=== PATIENT | female | born 1965 | race Caucasian/White ===

== ENCOUNTER → 2019-12-31 13:03 | Outpatient (CLI) | payer OTHER, SELFPAY ==
--- NOTE | ~2019-12-31 | MR_ITS ---
EXAMINATION: MR abdomen wo/w con INDICATION: Liver disease, unspecified TECHNIQUE: Coronal SSFSE ARC, WATER:coronal LAVA-FLEX, Coronal 2D FIESTA FatSat, Axial SSFSE BH ARC, Axial 3D DualEcho BH, Axial SSFSE-IR, Axial DWI b=500, Axial 2D FIESTA FatSat, pre and dynamic postco ntrast Axial LAVA ARC, postcontrast Coronal In and Opposed phase LAVA FLEX COMPARISON: None available CONTRAST: Multihance, 19 cc FINDINGS: There is a 3.8 x 3.4 cm T1 hypointense, T2 hyperintense mass of the right hepatic lobe whic h demonstrates peripheral enhancement with slow progressive enhancement on dynamic postcontrast seque nces. There is a 2.5 x 1.8 cm mildly T1 hypointense and mildly T2 hyperintense mass in liver segment II which demonstrates arterial enhancement with persistent enhancement on dynamic postcontrast sequen ramez. The spleen, pancreas, gallbladder, and adrenal glands are normal. The kidneys are unremarkable. There are no pathologically enlarged abdominal lymph nodes. No dilated loops of bowel are present. IMPRESSION: 1. Right hepatic lobe mass with MR features of a hemangioma. 2. Left hepatic lobe mass with MR features of focal nodular hyperplasia. Reviewed, dictated and finalized at location B.
[2019-12-31 13:30] LABS: Estimated Glomerular Filt Rate 46
== END ==
PROVIDERS: Visit Provider Nurse Practitioner Family
DX: K76.9 Liver disease, unspecified (principal)
CPT/HCPCS: 36415; 74183; A9577

== ENCOUNTER → 2020-01-15 16:24 | Outpatient (CLI) | payer OTHER, SELFPAY ==
--- NOTE | ~2020-01-15 | MM_ITS ---
EXAMINATION: MM screening [facility] BI w liliana HISTORY: Screening mammogram TECHNIQUE: Craniocaudal and mediolateral oblique 3-D tomosynthesis images were obtained and synthetic 2-D images were generated. CAD analysis was submitted and interpreted. COMPARISON: 11/28/2018, 11/15/2018, 09/03/2017 BREAST PARENCHYMAL COMPOSITION: There are scattered areas of fibroglandular density. FINDINGS: There is no evidence of suspicious mass, calcification, or architectural distortion to sugg est malignancy in either breast. There has been no suspicious interval change. IMPRESSION: 1. No mammographic evidence of malignancy. 2. Recommend routine screening mammography in one year. BI-RADS Category 1: Negative Reviewed, dictated and finalized at location B.
== END ==
PROVIDERS: Visit Provider Obstetrics & Gynecology
DX: Z12.31 Encounter for screening mammogram for malignant neoplasm of breast (principal)
CPT/HCPCS: 77063; 77067

== ENCOUNTER 2020-02-13 06:31 | Outpatient (CLI) | payer OTHER, SELFPAY ==
[2020-02-13 16:20] LABS: SARS-CoV-2 RNA PCR Negative
== END 2020-02-13 06:32 | disposition home or self-care (01) ==
LOC: ANHCOVIDDT 06:32
PROVIDERS: Visit Provider Obstetrics & Gynecology
DX: Z01.818 Encounter for other preprocedural examination (principal); Z11.59 Encounter for screening for other viral diseases
CPT/HCPCS: 87635; C9803; U0003

== ENCOUNTER 2020-02-13 09:33 | Outpatient (CLI) | payer OTHER, SELFPAY | END 2020-02-13 09:34 | disposition home or self-care (01) | PROVIDERS: PCP Family Medicine; Visit Provider Obstetrics & Gynecology | DX: Z01.818 Encounter for other preprocedural examination (principal) | CPT/HCPCS: 36415; 86850; 86900; 86901 ==

== ENCOUNTER 2020-02-16 00:26 | Day surgery (SDC) | payer OTHER, SELFPAY ==
--- NOTE | 2020-02-11 12:57 | PM.IMHP ---
H&P: HPI History of Present Illness Chief complaint: pain, righ ovarian cyst Narrative: Madhavi Hunt is a 54 year old female who was admitted for laparoscopy and possible right salpingo-oophorectomy. She has pain on the right side for more than a month. She have seen her general practitioner presented to the ER and she had a normal CT and MRI. She underwent colonoscopy and some polyps were seen but no explanation for her pain seen. Her pain is unrelenting. Risks and benefits were reviewed in full Review of Systems Review of Systems: All systems reviewed & are unremarkable except as noted in HPI and below PMFSH Family History Family History Father Diabetes mellitus, Onset Age: 63 Hypertension, Onset Age: 63 Family history of coronary artery disease, Onset Age: 63 Mother Diabetes mellitus Hypertension Family history of primary malignant neoplasm of liver, Onset Age: 74 Social History Social History Smoking status: Never smoker Alcohol intake: never Meds Home Medications and Allergies Home Medications Medication Instructions Recorded Confirmed Type baclofen 20 mg tablet 20 mg PO TID tablet 09/19/19 History cholecalciferol (vitamin D3) 50 2,000 unit PO DAILY 09/19/19 History mcg (2,000 unit) capsule gabapentin 300 mg capsule See Rx Instructions .ROUTE .COMPLEX 09/19/19 History levothyroxine 50 mcg tablet 50 mcg PO DAILY 09/19/19 History pantoprazole 40 mg tablet,delayed 40 mg PO DAILY tablet 09/19/19 History release topiramate 200 mg tablet 200 mg PO DAILY 09/19/19 History Allergies Allergy/AdvReac Type Severity Reaction Status Date / Time iodine Allergy Unknown Verified 02/24/19 13:59 morphine Allergy Unknown Verified 02/24/19 13:59 Penicillins Allergy Unknown Verified 07/27/16 08:02 TOMATP SEEDS- CAUSES TONGUE Allergy Unknown Uncoded 03/31/03 11:34 TO SWELL Exam Const: General: no acute distress Eyes: General: appearance normal, both eyes and all related structures Neck: Neck: supple and no JVD Thyroid: thyroid normal Resp: Effort & Inspection: normal respiratory effort Auscultation: clear to auscultation bilaterally Cardio: Rate: regular rate Rhythm: regular rhythm GI: Inspection: non-distended GI Palp: Yes Soft to palpation, No Tenderness to palpation present (GI) and No Guarding due to palpation present (GI) Auscultation: normal bowel sounds : External Female Exam: normal external appearance Speculum Exam - Vagina: normal appearance of the vagina Bimanual Exam- Adnexa, other: tender on the right Skin: General skin exam: no rashes or lesions noted Extrem: General: normal to inspection and no edema Psych: Mental Status: mental status grossly normal Affect: normal affect Assessment and Plan Additional Plan impression: Severe right-sided pain probable adnexal 1 nature Plan: Laparoscopy / possible right salpingo-oophorectomy
[2020-02-11 13:56] VITALS: BMI 34.8
[2020-02-16] VITALS (8 sets, daily range): BP systolic 99–133; BP diastolic 48–72; PULSE 46–70; RESP 10–20; TEMP 36.4; O2SAT 98–100
--- NOTE | 2020-02-16 06:36 | WPDHPUPDATE1 ---
History and Physical Update Update Date/Time: 02/16/20 06:36 History and Physical has been reviewed, including an updated exam of the patient. There are NO changes in the patient's condition. Risks, benefits, and alternatives have been discussed and questions answered. Patient agrees to proceed with procedure.
[2020-02-16] MEDS: LACTATED RINGERS 1,000 ML 30 ML IV CONT (08:25)
--- NOTE | 2020-02-16 08:33 | SUR.PREOP ---
pt states lmp 06/13
--- NOTE | 2020-02-16 08:41 | WPDANESEPPF ---
Anes - Initial Pre Proc Eval Procedure: Operation Date: 02/16/20 09:30 Proposed Procedures p Diagnostic Laparoscopy, Possible Right Salping-Oophorectomy - Efren Gonzalez MD Date/Time: 02/16/20 08:41 Surgeon: Efren Gonzalez MD Pre Op Diagnosis: pain, righ ovarian cyst Patient Data Age: 54 Gender: F Height: 5 ft 5 in Weight: 93.1 kg Last Vital Signs Temp 36.4 C L 02/16/20 07:49 Pulse 63 02/16/20 07:49 Resp 20 02/16/20 07:49 BP 113/59 L 02/16/20 07:49 Pulse Ox 98 02/16/20 07:49 Allergies Allergy/AdvReac Type Severity Reaction Status Date / Time iodine Allergy Severe Rash Verified 02/16/20 07:48 morphine Allergy Intermediate Nausea and Verified 02/16/20 07:48 Vomiting Penicillins Allergy Unknown Other Verified 02/16/20 07:48 TOMATP SEEDS- CAUSES TONGUE Allergy Unknown Swelling Uncoded 02/16/20 07:48 TO SWELL of Lip/Tongue/Throat Home Medications Medication Instructions Recorded Confirmed Type gabapentin 300 mg capsule 300 mg PO HS 09/19/19 02/16/20 History topiramate 200 mg tablet 200 mg PO DAILY 09/19/19 02/16/20 History levothyroxine 100 mcg PO DAILY 02/11/20 02/16/20 History hydrocodone-acetaminophen [[place]] 1 tablet PO Q4H PRN #20 tablet 02/16/20 Rx Patient hx anesthesia problems: none Family hx anesthesia problems: none PMFSH Past Medical History Medical History (Updated 02/16/20 @ 08:42 by Efren Mullen MD) Hypothyroidism Obesity Family History Family History Father Diabetes mellitus, Onset Age: 63 Hypertension, Onset Age: 63 Family history of coronary artery disease, Onset Age: 63 Mother Diabetes mellitus Hypertension Family history of primary malignant neoplasm of liver, Onset Age: 74 Social History Social History Smoking status: Never smoker Alcohol intake: never Gender identity (if verbalized by the patient): Female Anes - Eval Final PreProcedure Day of Procedure 02/16/20 08:41 Patient weight: obese Heart: regular rate and rhythm Lungs: clear to auscultation Airway: Mallampati scale class II Neurological: alert and oriented Last oral intake: >/= 8 hours ASA classification: II Emergent: no Anesthetic plan: proceed Anesthesia type and monitoring: general ETT and standard monitoring Informed Consent: The patient's anesthetic plan and its attendant risks and benefits were discussed with the patient/family/POA. Questions were solicited and answers provided to the satisfaction of the patient/family/POA.
--- NOTE | 2020-02-16 10:12 | PM.PROC ---
Procedure Note - Detailed Date of procedure: 02/16/20 Pre-op diagnosis: pain, righ ovarian cyst Surgeon: Efren Gonzalez MD Postop diagnosis: Right-sided pain/right ovarian cyst/adhesions Procedure: Laparoscopic right salpingo-oophorectomy and lysis of adhesions Anesthesia: General endotracheal EBL: 5cc findings Findings: Benign appearing right ovarian cyst/adhesions along the right lateral sidewall. Normal-appearing appendix. Normal-appearing gallbladder and liver edge normal appearing uterus ovaries and tubes Description of procedure: The patient was prepped draped in the normal sterile fashion placed in the dorsal lithotomy position. Under excellent general trach anesthesia weighted speculum was placed in posterior fornix vagina. Anterior lip of the cervix was grasped with a single-tooth tenaculum. Latham's cannula was inserted to be attached to the single-toothed to be used later for uterine manipulation. After emptying the bladder clear urine. A weighted speculum was placed. Gloves were changed. Supraumbilical incision was made and the Veress needle passed in the abdomen. Abdomen was filled with CO2 gas [id number]. The 5mm trocar was advanced under direct visualization assuring no injury. The patient was placed in Trendelenburg. Left lateral quadrant incision was made in 5mm trocar advanced under direct visualization assuring no injury. Multiple adhesions were seen and sharp dissection was used after and 10mm incision was made in the right lower quadrant. The 10mm trocar advanced under direct visualization assuring no injury. Multiple adhesions were seen along the right lateral sidewall and a benign ovarian cyst. The appendix appeared within normal limits as did the gallbladder and liver edge. No abnormalities bowel findings were seen. The infundibulopelvic structure was skeletonized. Was clamped, burned, cut and taken out through the right lower quadrant. Irrigation undertaken to clear. The pedicles appeared dry. The instruments removed. The incisions closed with 4 Monocryl and glue. Patient went to recovery in satisfactory condition. All sponge, needle, instrument counts were correct. There were no immediate complications
== END 2020-02-16 12:25 | disposition home or self-care (01) ==
PROVIDERS: PCP Family Medicine; Visit Provider Obstetrics & Gynecology
PROC: (CPT 49320; principal; 2020-02-16 09:30)
DX: R10.2 Pelvic and perineal pain (principal); N73.6 Female pelvic peritoneal adhesions (postinfective); E03.9 Hypothyroidism, unspecified; E66.9 Obesity, unspecified; Z68.34 Body mass index [BMI] 34.0-34.9, adult
CPT/HCPCS: 58661; 88305; A9270; J1170; J2250; J2405; J2704; J2710; J3010; J7030; J7120

== ENCOUNTER 2020-06-04 19:39 | Emergency (ER) | payer OTHER, SELFPAY ==
--- NOTE | ~2020-06-04 | CT_ITS ---
EXAMINATION: CT BRAIN W/O DATE: 06/04/2020 20:49 INDICATION: Status post fall. Head trauma. Headache. Laceration. TECHNIQUE: Computed tomography (CT) of the head was performed without intravenous contrast. The dose- length product was 605.33 mGy-cm. The mA was adjusted according to patient size. Iterative reconstruc tion technique was employed. COMPARISON: No prior studies for comparison. FINDINGS: Normal brain parenchymal volume for age. Normal woods-white differentiation. No acute intrac ranial hemorrhage, infarction, mass or mass effect. No ventriculomegaly or midline shift. Midline sagittal images demonstrate a normal corpus callosum, c raniovertebral junction and sella turcica. Basilar cisterns are patent. There is mucosal thickening of the maxillary sinuses with air-fluid level right maxillary sinus. No d epressed skull fractures. IMPRESSION: 1. No acute intracranial abnormality. Reviewed, dictated and finalized at location A.
[2020-06-04 19:48] VITALS: BP 142/72; PULSE 71; RESP 16; TEMP 36.5; O2SAT 99
--- NOTE | 2020-06-04 22:31 | ED.HEATRA ---
HPI - Head Injury General Chief complaint: Head Injury Stated complaint: head injury Time Seen by Provider: 06/04/20 21:40 Source: patient Mode of arrival: ambulatory Limitations: no limitations History of Present Illness HPI Narrative: This patient is a 55 year old female who presents for evaluation of scalp laceration s/p fall. Patient states she lost her balance while on a ladder. She fell off onto her buttocks but then she hit her head on the ladder. She denies LOC, nausea, vomiting or dizziness. She is unsure of her last tetanus. Related Data Home Medications Medication Instructions Recorded Confirmed gabapentin 300 mg capsule 300 mg PO HS 09/19/19 02/16/20 topiramate 200 mg tablet 200 mg PO DAILY 09/19/19 02/16/20 levothyroxine 100 mcg PO DAILY 02/11/20 02/16/20 Allergies Allergy/AdvReac Type Severity Reaction Status Date / Time iodine Allergy Severe Rash Verified 06/04/20 22:35 morphine Allergy Intermediate Nausea and Verified 06/04/20 22:35 Vomiting Penicillins Allergy Unknown Other Verified 06/04/20 22:35 TOMATP SEEDS- CAUSES TONGUE Allergy Unknown Swelling Uncoded 06/04/20 22:35 TO SWELL of Lip/Tongue/Throat Review of Systems Review of Systems: All systems reviewed & are unremarkable except as noted in HPI and below Constitutional: Constitutional: Denies chills and Denies fever(s) Eyes: Eyes: Denies change in vision ENT: Denies dizziness Gastrointestinal: Gastrointestinal: Denies nausea and Denies vomiting Musculoskeletal: Musculoskeletal: Denies back pain and Denies myalgias Neurologic: Reports headache(s), Denies focal weakness and Denies numbness [facility] Past Medical History Medical History (Updated 06/05/20 @ 00:00 by Background Daemon) Hypothyroidism Obesity Social History Social History Smoking status: Never smoker Alcohol intake: never Gender identity (if verbalized by the patient): Female Exam Const: General: no acute distress and alert Orientation/consciousness: patient oriented x3 HENMT: Other: hair matted with dried blood, right parietal scalp laceration 5 cm into subcutaneous tissue Eyes: EOM: EOMs intact bilaterally Neck: Neck: normal visual inspection Resp: Effort & Inspection: normal respiratory effort Back/Spine/Pelvis: Back: no CVA tenderness Skin: General skin exam: normal color Rashes: no rashes Neuro: General: patient oriented x3 and moves all extremities Extrem: General: normal to inspection Psych: Mental Status: mental status grossly normal Affect: normal affect Course Vital Signs Vital signs: Vital Signs Temperature 97.7 F 06/04/20 19:48 Pulse Rate 71 06/04/20 19:48 Respiratory Rate 16 06/04/20 19:48 Blood Pressure 142/72 H 06/04/20 19:48 Pulse Oximetry 99 06/04/20 19:48 Temperature 97.7 F 06/04/20 19:48 Pulse Rate 78 06/04/20 23:23 Respiratory Rate 16 06/04/20 23:23 Blood Pressure 154/77 H 06/04/20 23:23 Pulse Oximetry 99 06/04/20 23:23 Procedures Laceration Laceration 1: Date: 06/04/20 Time: 22:32 Site: scalp Size (cm): 5 Description: linear Depth: simple, single layer Local Anesthetic: lidocaine 1% and with epi Amount of anesthesia used (mL): 10 Pre-repair: irrigated ====== Skin Level ====== Skin layer closed with: micki () ====== Subcutaneous Layer ====== ====== Muscle Layer ====== ====== Tendon Layer ====== MDM - Head Injury Imaging Data Radiologist's impression: ITS Impressions Head CT 06/04/20 20:57 IMPRESSION: 1. No acute intracranial abnormality. Discharge Plan Discharge Clinical Impression: Closed head injury, Laceration of scalp Patient Disposition: Home, Self-Care Condition: Stable Instructions: Antibiotic Form, Staple Care (ED), Head Laceration (ED) Additional
[2020-06-04] MEDS: TETANUS,DIPHTHERIA,AC PERTUSSIS ADULT (0.5 ML) BOOSTRIX IM (23:22)
[2020-06-04 23:23] VITALS: BP 154/77; PULSE 78; RESP 16; O2SAT 99
== END 2020-06-04 23:24 | disposition home or self-care (01) ==
PROVIDERS: Emergency Provider General Practice; PCP Family Medicine
DX: S01.01XA Laceration without foreign body of scalp, initial encounter (principal); E03.9 Hypothyroidism, unspecified; E66.9 Obesity, unspecified; W11.XXXA Fall on and from ladder, initial encounter; Z23 Encounter for immunization
CPT/HCPCS: 12002; 70450; 90471; 90715; 99284; A9270

== ENCOUNTER → 2021-11-29 10:48 | Outpatient (CLI) | payer BC, SELFPAY ==
--- NOTE | ~2021-11-29 | CT_ITS ---
EXAMINATION: CT abdomen pelvis w con INDICATION: Right upper quadrant pain, abdominal mass TECHNIQUE: Computed tomographic images of the abdomen and pelvis were obtained after the administrati on of 100 cc of Omnipaque 350 intravenous contrast. The dose-length product (DLP) was 995.38 mGy-cm. Automated exposure control and iterative reconstruction technique were employed. COMPARISON: MRI, 12/31/2019 FINDINGS: The lung bases are clear. The heart size is normal. The previously described left hepatic l obe mass is not well demonstrated. There is a stable 3.8 cm mass right hepatic lobe, likely hemangiom a. No new liver masses identified. The spleen, pancreas, gallbladder and adrenal glands are normal. T he kidneys are unremarkable. No pathologically enlarged abdominal or pelvic lymph nodes are identifie d. There is no free intraperitoneal gas or evidence of bowel obstruction. The appendix is normal. The re is mild lumbar spondylosis. IMPRESSION: 1. No CT correlate for right upper quadrant pain. 2. Stable right hepatic lobe mass, consistent with a hemangioma. Reviewed, dictated and finalized at location A. CLEANER
== END ==
PROVIDERS: PCP Nurse Practitioner Family; Visit Provider Nurse Practitioner Family
DX: R19.00 Intra-abdominal and pelvic swelling, mass and lump, unspecified site (principal); R16.0 Hepatomegaly, not elsewhere classified
CPT/HCPCS: 74177; Q9967

== ENCOUNTER → 2022-03-31 12:05 | Outpatient (CLI) | payer BC, SELFPAY ==
--- NOTE | ~2022-03-31 | MM_ITS ---
EXAMINATION: MM screening [facility] BI w liliana HISTORY: Screening mammogram TECHNIQUE: Craniocaudal and mediolateral oblique 3-D tomosynthesis images were obtained and synthetic 2-D images were generated. CAD analysis was submitted and interpreted. COMPARISON: 01/15/2020 bilateral screening mammogram 11/28/2018 diagnostic right mammogram and complete right breast ultrasound 11/15/2018 bilateral screening mammogram BREAST PARENCHYMAL COMPOSITION: There are scattered areas of fibroglandular density. FINDINGS: There is no evidence of suspicious mass, calcification, or architectural distortion to sugg est malignancy in either breast. There has been no suspicious interval change. IMPRESSION: 1. No mammographic evidence of malignancy. 2. Recommend routine screening mammography in one year. BI-RADS Category 1: Negative Reviewed, dictated and finalized at location A.
--- NOTE | ~2022-03-31 | DEXA_ITS ---
Bone Density Report Name: CARLA LOCKWOOD Age: 56 Sex: Female Ethnicity: White Date of : 1965 Indication: postmenopausal; screening for osteoporosis; Referring Provider: Aster, Camila Armstrong Study: Bone densitometry was performed. Exam Date: March 31, 2022 Accession number: [id number] Bone Density: Region BMD T-score Z-score Classification AP Spine (L1-L4) 1.146 0.9 2.2 Normal Femoral Neck (Left) 0.772 -0.7 0.5 Normal Total Hip (Left) 1.024 0.7 1.6 Normal Femoral Neck (Right) 0.784 -0.6 0.6 Normal Total Hip (Right) 1.004 0.5 1.4 Normal Total Hip Mean 1.014 0.6 1.5 Normal World Health Organization criteria for BMD impression classify patients as: Normal (T-score at or above -1.0), Osteopenia (T-score between -1.0 and -2.5), or Osteoporosis (T-score at or below -2.5). 10-year Fracture Risk: FRAX not reported because: All T-scores for Spine Total, Hip Total, Femoral Neck at or above -1.0 Clinical Information Provided by Patient: Patient maximum height was 65.5 Menopause Age: 36 No regular weight bearing exercise Drinks caffeinated beverages Onset of menses at age 10 Number of children 4 Impression: The patient has normal bone mass. Discussion: BONE DENSITY IS ABOVE THE MINIMUM DESIRABLE LEVEL AT ALL SKELETAL SITES TESTED. This patient?s bone mineral density is above the minimum desirable level (T-score -1.0 or better) at all sites measured. The patient should follow a healthful lifestyle (good nutrition with adequate calcium and vitamin D, and appropriate weight-bearing exercise). Follow-Up: Consider repeating this study in 5 years or sooner if there is some new clinical indication. Reported by: SUE on 03/31/2022 12:49:00 PM. Reviewed, dictated and finalized at location [facility]
== END ==
PROVIDERS: PCP Nurse Practitioner Family; Visit Provider Nurse Practitioner Family
DX: Z12.31 Encounter for screening mammogram for malignant neoplasm of breast (principal); Z78.0 Asymptomatic menopausal state
CPT/HCPCS: 77063; 77067; 77080

== ENCOUNTER → 2023-02-14 12:38 | Outpatient (CLI) | payer BC, SELFPAY ==
--- NOTE | ~2023-02-14 | XR_ITS ---
Lumbosacral Spine: AP and lateral views Clinical History: Pain Findings: The normal lordotic curve is maintained. The vertebral bodies and posterior elements are i ntact. There are mild degenerative disc changes throughout the lumbar spine. The sacroiliac joints a re normally outlined. Impression: Mild degenerative disc disease throughout the lumbar spine. Reviewed, dictated and finalized at location . Impression: Mild degenerative disc disease throughout the lumbar spine.
== END ==
PROVIDERS: PCP Nurse Practitioner Family; Visit Provider Nurse Practitioner Family
DX: M54.42 Lumbago with sciatica, left side (principal); M51.36 Other intervertebral disc degeneration, lumbar region
CPT/HCPCS: 72100

== ENCOUNTER → 2023-02-20 07:31 | Outpatient (CLI) | payer BC, SELFPAY ==
--- NOTE | ~2023-02-20 | US_ITS ---
EXAMINATION: US thyroid DATE: 02/20/2023 08:10 INDICATION: Nontoxic goiter. TECHNIQUE: Multiple ultrasound images of the thyroid were obtained. COMPARISON: None. FINDINGS: The right thyroid lobe measures 4.4 x 1.7 x 1.7 cm. The left thyroid lobe measures 3.8 x 1.5 x 1.4 c m. The thyroid is diffusely heterogeneous and hypoechoic. Vascularity is increased. No discrete nodu le. IMPRESSION: 1. Heterogeneous, hypervascular thyroid, consistent with chronic lymphocytic (Cady) thyroiditis. Reviewed, dictated and finalized at location A. IMPRESSION: 1. Heterogeneous, hypervascular thyroid, consistent with chronic lymphocytic (H ashimoto) thyroiditis.
== END ==
PROVIDERS: PCP Internal Medicine Endocrinology, Diabetes & Metabolism; Visit Provider Internal Medicine Endocrinology, Diabetes & Metabolism
DX: E04.9 Nontoxic goiter, unspecified (principal)
CPT/HCPCS: 76536

== ENCOUNTER → 2023-05-04 10:15 | Outpatient (CLI) | payer BC, SELFPAY ==
--- NOTE | ~2023-05-04 | MM_ITS ---
EXAMINATION: MM screening [facility] BI w liliana HISTORY: Screening mammogram TECHNIQUE: Craniocaudal and mediolateral oblique 3-D tomosynthesis images were obtained and synthetic 2-D images were generated. CAD analysis was submitted and interpreted. COMPARISON: 03/11/2022, 01/15/2020, 11/28/2018, 11/25/2018 BREAST PARENCHYMAL COMPOSITION: There are scattered areas of fibroglandular density. FINDINGS: No suspicious mass, calcification, or architectural distortion are identified in either kylah ast to suggest malignancy. There has been no suspicious interval change. IMPRESSION: 1. No mammographic evidence of malignancy. 2. Recommend routine screening mammography in one year. BI-RADS Category 1: Negative Reviewed, dictated and finalized at location A.
== END ==
PROVIDERS: PCP Obstetrics & Gynecology; Visit Provider Nurse Practitioner Family
DX: Z12.31 Encounter for screening mammogram for malignant neoplasm of breast (principal)
CPT/HCPCS: 77063; 77067

== ENCOUNTER → 2023-05-08 10:57 | Outpatient (CLI) | payer BC, SELFPAY ==
--- NOTE | ~2023-05-08 | XR_ITS ---
Left Shoulder Technique: AP and scapular Y views were obtained. Clinical History: Pain Findings: No fracture or dislocation is seen. Osseous alignment is anatomic. The glenohumeral and acr omioclavicular joint spaces are preserved. Soft tissues are unremarkable. Impression: Unremarkable left shoulder radiographs. Reviewed, dictated and finalized at [facility]. Impression: Unremarkable left shoulder radiographs.
--- NOTE | ~2023-05-08 | XR_ITS ---
Left Humerus Technique: AP and lateral views were obtained. Clinical History: Pain Findings: No fracture or dislocation is seen. Osseous alignment is anatomic. Visualized joint spaces are grossly preserved. Soft tissues are unremarkable. Impression: Unremarkable examination. No fracture or dislocation. Reviewed, dictated and finalized at location . Impression: Unremarkable examination. No fracture or dislocation.
== END ==
PROVIDERS: PCP Nurse Practitioner Family; Visit Provider Nurse Practitioner Family
DX: M25.512 Pain in left shoulder (principal)
CPT/HCPCS: 73030; 73060

== ENCOUNTER → 2023-06-13 06:59 | Outpatient (CLI) | payer BC, SELFPAY ==
--- NOTE | ~2023-06-13 | MR_ITS ---
EXAMINATION: MR shoulder LT wo con DATE: 06/13/2023 07:36 INDICATION: Left shoulder pain TECHNIQUE: Magnetic resonance imaging (MRI) of the left shoulder was performed without intravenous co ntrast. Sequences included axial PD-weighted FS FSE, coronal oblique PD-weighted FS FSE, coronal obli que T2-weighted FS FSE, sagittal PD-weighted FS FSE, and sagittal T1-weighted SE. COMPARISON: None. FINDINGS: Coracoacromial arch: The acromion undersurface is curved in morphology (type II). The coracoacromial ligament is normal. M ild acromioclavicular osteoarthritis with small cephalad directed osteophytes. Rotator cuff: Moderate supraspinatus and mild infraspinatus tendinopathy. There is a small partial-thickness intras ubstance tear of the conjoined portion of the supraspinatus and infraspinatus tendons which extends 4 mm AP along the footplate at the junction of the superior and middle facets. No evident involvement of the bursal or articular surfaces of the tendon. The teres minor tendon is normal. Mild subscapular is tendinopathy without discrete tear. Normal rotator cuff muscle bulk and signal. Biceps tendon, glenoid labrum and glenohumeral cartilage: Long head of the biceps tendon is normal. There is mild amorphous increased signal of the posterior s uperior glenoid labrum consistent with labral degeneration. The posterior and inferior glenoid labrum appear small likely representing sequela of additional chronic degeneration without discrete tear. Glenohumeral cartilage is normal. Fluid: Physiologic amount of fluid in the glenohumeral joint and biceps tendon sheath. No loose osteochondr al bodies. Small amount of fluid in the subacromial/subdeltoid bursa consistent with mild bursitis. Bones: Normal marrow signal with no edema, fracture or abnormal marrow replacing process. Mild cystic change at the anterior margin of the greater tuberosity likely related to chronic supraspinatus tendon dise ase. IMPRESSION: 1. Moderate supraspinatus and mild infraspinatus tendinopathy with small mild intrasubstance tear at the insertion of the conjoined portion of the tendons. 2. 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 3. Mild subacromial/subdeltoid bursitis. Reviewed, dictated and finalized at location A. IMPRESSION: 1. Moderate supraspinatus and mild infraspinatus tendinopathy with small mild i ntrasubstance tear at the insertion of the conjoined portion of the tendons. 2. 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 3. Mild subacromial/subdeltoid bursitis.
== END ==
PROVIDERS: PCP Nurse Practitioner Family; Visit Provider Orthopaedic Surgery
DX: M75.52 Bursitis of left shoulder (principal); M75.82 Other shoulder lesions, left shoulder; S43.432A Superior glenoid labrum lesion of left shoulder, initial encounter; M67.814 Other specified disorders of tendon, left shoulder
CPT/HCPCS: 73221